=== PATIENT | female | born 1950 | race American Indian/Alaskan Native ===

== ENCOUNTER 2017-03-12 07:58 | Day surgery (SDC) | payer MEDICARE ==
[2017-03-12 09:03] VITALS: BMI 43.7
[2017-03-12 09:17] VITALS: O2SAT 100
[2017-03-12] MEDS ORDERED: Propofol 10 mg/ml Inj (20 ML) ONE (11:45)
[2017-03-12] MEDS ORDERED: Lidocaine Hydrochloride 5 ML INJ ONE (11:46)
[2017-03-12] MEDS ORDERED: Lactated Ringer's 500 ML IV SCH (12:15)
[2017-03-12 12:38] VITALS: TEMP 97.5
[2017-03-12 13:10] VITALS: RESP 18
[2017-03-12 13:38] VITALS: BP 136/78; PULSE 60
== END 2017-03-12 13:30 | disposition home or self-care (01) ==
LOC: C.ENDO 07:58
PROVIDERS: ATTEND Internal Medicine Gastroenterology
DX: D12.4 Benign neoplasm of descending colon (principal); K64.8 Other hemorrhoids
CPT/HCPCS: 45385; 82948; 88305; J2704; J7120